=== PATIENT | female | born 1970 | race Caucasian/White ===

== ENCOUNTER 2022-11-08 11:06 | Emergency (ER) | payer MEDICAID, SELFPAY ==
[2022-11-08] MEDS ORDERED: HYDROmorphone 1 MG/ML Syringe IM ONE (11:55)
== END 2022-11-08 13:13 | disposition home or self-care (01) ==
LOC: JD.ED 11:06
DX: M25.562 Pain in left knee (principal); F17.210 Nicotine dependence, cigarettes, uncomplicated; Z88.1 Allergy status to other antibiotic agents; Z91.041 Radiographic dye allergy status
CPT/HCPCS: 73562; 96372; 99283; J1170

== ENCOUNTER 2024-12-27 09:41 | Emergency (ER) | payer MEDICAID | END 2024-12-27 11:45 | disposition home or self-care (01) | LOC: JD.ED 09:41 | DX: M54.50 Low back pain, unspecified (principal); F17.200 Nicotine dependence, unspecified, uncomplicated; Z88.1 Allergy status to other antibiotic agents; Z91.041 Radiographic dye allergy status; Z79.899 Other long term (current) drug therapy; W19.XXXA Unspecified fall, initial encounter; Y92.010 Kitchen of single-family (private) house as the place of occurrence of the external cause | CPT/HCPCS: 72072; 72100; 96372; 99283; J1171 ==